=== PATIENT | male | born 1995 | race Caucasian/White ===

== ENCOUNTER 2018-09-16 19:32 | Observation (INO) ==
[2018-09-16] MEDS ORDERED: MORPHINE 4 MG/1 ML VIAL IV STA (21:19)
[2018-09-16 21:44] LABS: Basophils # 0.1 10*3/uL (0.0-0.2); Basophils % 0.4 % (0.0-0.8); Eosinophils # 0.1 10*3/uL (0.0-0.87); Eosinophils % 0.8 % (0.00-10.9); Hematocrit 44.5 VOL% (42.0-52.0); Hemoglobin 14.2 GM/DL (14.0-18.0); Immature Granulocytes % 0.5 %; Immature Granulocytes Absolute 0.07 #; Lymphocytes # 1.7 10*3/uL (1.4-4.0); Lymphocytes % 11.6 % (21.2-54.2); Mean Corpuscular HGB Conc 31.9 GM/DL (32-36); Mean Corpuscular Volume 89.7 FL (87-102); Mean Platelet Volume 9.7 FL (9.6-12.0); Monocytes % 8.2 % (1.7-12.7); Neutrophils % 78.5 % (38.7-73.9); Platelet Count 351 T/CUMM (130-400); Red Blood Count 4.96 MC/CUMM (3.8-5.5); Red Cell Distribution Width 13.2 % (9.3-17.3); White Blood Count 14.3 T/CUMM (4-12)
[2018-09-16 21:47] LABS: Albumin 4.6 G/DL (3.4-5.0); Bilirubin,Total 0.4 MG/DL (0.2-1.0); Calcium 9.4 MG/DL (8.5-10.1); Osmolality,Calculated 281.3 MOS/KG (273-304)
[2018-09-16] MEDS ORDERED: DIPHTHERIA/TETANUS ADULT VACCINE 0.5 ML SYRINGE IM ONE (22:03)
[2018-09-16] MEDS ORDERED: ACETAMINOPHEN 325 MG TABLET PO PRN (22:04)
[2018-09-16] MEDS ORDERED: MORPHINE 4 MG/1 ML VIAL IV PRN (22:04)
[2018-09-16] MEDS ORDERED: ONDANSETRON 4 MG/2 ML VIAL IV PRN (22:04)
[2018-09-16] MEDS ORDERED: DEXTROSE 5% NACL 0.45% 1,000 ML IV SCH (22:30)
[2018-09-17 05:13] LABS: Basophils % 0.4 % (0.0-0.8); Eosinophils # 0.1 10*3/uL (0.0-0.87); Eosinophils % 1.2 % (0.00-10.9); Hematocrit 41.2 VOL% (42.0-52.0); Immature Granulocytes % 0.3 %; Immature Granulocytes Absolute 0.03 #; Lymphocytes # 2.2 10*3/uL (1.4-4.0); Mean Corpuscular HGB Conc 31.6 GM/DL (32-36); Mean Corpuscular Volume 89.8 FL (87-102); Mean Platelet Volume 9.8 FL (9.6-12.0); Monocytes % 10.7 % (1.7-12.7); Neutrophils % 67.4 % (38.7-73.9); Platelet Count 327 T/CUMM (130-400); Red Blood Count 4.59 MC/CUMM (3.8-5.5); Red Cell Distribution Width 13.2 % (9.3-17.3); White Blood Count 10.9 T/CUMM (4-12)
[2018-09-17 05:42] LABS: Calcium 8.7 MG/DL (8.5-10.1); Osmolality,Calculated 282.3 MOS/KG (273-304)
[2018-09-17] MEDS ORDERED: ceFAZolin 2,000 MG in PREMIX 1 EACH IV ONE (06:25)
[2018-09-17] MEDS ORDERED: oxyCODONE/ACETAMINOPHEN 5-325 MG TABLET PO PRN ×2 (06:26)
[2018-09-17] MEDS ORDERED: MORPHINE 4 MG/1 ML VIAL IV PRN (06:26)
[2018-09-17] MEDS ORDERED: diphenhydrAMINE CAP 25 MG CAPSULE PO PRN (07:57)
[2018-09-17] MEDS: MORPHINE 4 MG/1 ML VIAL IV PRN ×2 (08:12→19:36)
[2018-09-17] MEDS: FAMOTIDINE 20 MG/2 ML VIAL IV SCH ×3 (08:12→20:42)
[2018-09-17] MEDS ORDERED: PANTOPRAZOLE 40 MG VIAL IV SCH (09:00)
[2018-09-17] MEDS ORDERED: ROPIVACAINE 0.5% 30 ML VIAL ONE (14:21)
[2018-09-17] MEDS ORDERED: BACITRACIN OINT 0.9 GM PACK TOP ONE (15:45)
[2018-09-17] MEDS ORDERED: MAGNESIUM HYDROXIDE SUSP 30 ML UDCUP PO PRN (17:26)
[2018-09-17] MEDS ORDERED: KETOROLAC 30 MG/1 ML VIAL ONE (17:57)
[2018-09-17] MEDS: KETOROLAC 30 MG/1 ML VIAL IV PRN (17:59)
[2018-09-17] MEDS ORDERED: PROPOFOL 200 MG/20 ML VIAL IV ONE (20:31)
[2018-09-17] MEDS ORDERED: SEVOFLURANE 1 UNIT/15 MINUTE INH ONE (20:32)
[2018-09-17] MEDS ORDERED: fentaNYL 100 MCG/2 ML VIAL ONE (20:32)
[2018-09-17] MEDS ORDERED: SUCCINYLCHOLINE 200 MG/10 ML VIAL ONE (20:32)
[2018-09-17] MEDS ORDERED: MIDAZOLAM 2 MG/2 ML VIAL ONE (20:32)
[2018-09-17] MEDS ORDERED: DEXAMETHASONE 4 MG/1 ML VIAL ONE (20:33)
[2018-09-17] MEDS ORDERED: GLYCOPYRROLATE 0.4 MG/2 ML VIAL ONE (20:33)
[2018-09-17] MEDS ORDERED: ONDANSETRON 4 MG/2 ML VIAL ONE (20:33)
[2018-09-17] MEDS ORDERED: PHENYLEPHRINE 1 MG/10 ML SYRINGE IV ONE (20:33)
[2018-09-17] MEDS ORDERED: ROCURONIUM 100 MG/10 ML VIAL IV ONE (20:33)
[2018-09-17] MEDS ORDERED: NEOSTIGMINE 10 MG/10 ML VIAL ONE (20:34)
[2018-09-18] MEDS: KETOROLAC 30 MG/1 ML VIAL IV PRN ×2 (00:05→07:24)
[2018-09-18] MEDS: ceFAZolin 2,000 MG in PREMIX 1 EACH IV SCH ×2 (00:10→09:00)
[2018-09-18 05:26] LABS: Basophils % 0.2 % (0.0-0.8); Eosinophils # 0.1 10*3/uL (0.0-0.87); Eosinophils % 0.5 % (0.00-10.9); Hematocrit 35.1 VOL% (42.0-52.0); Hemoglobin 11.1 GM/DL (14.0-18.0); Immature Granulocytes % 0.3 %; Immature Granulocytes Absolute 0.03 #; Lymphocytes # 2.1 10*3/uL (1.4-4.0); Lymphocytes % 20.5 % (21.2-54.2); Mean Corpuscular HGB Conc 31.6 GM/DL (32-36); Mean Corpuscular Volume 90.5 FL (87-102); Mean Platelet Volume 9.8 FL (9.6-12.0); Monocytes % 11.3 % (1.7-12.7); Neutrophils % 67.2 % (38.7-73.9); Platelet Count 305 T/CUMM (130-400); Red Blood Count 3.88 MC/CUMM (3.8-5.5); Red Cell Distribution Width 13.4 % (9.3-17.3)
[2018-09-18 08:14] VITALS: BP 132/83
[2018-09-18] MEDS: FAMOTIDINE 20 MG/2 ML VIAL IV SCH (09:00)
== END 2018-09-18 09:00 | disposition home or self-care (01) ==
LOC: N.ED 19:32 → N.EDINP 19:32 → N.3E 22:20
PROVIDERS: ADMIT Orthopaedic Surgery; ATTEND Orthopaedic Surgery